=== PATIENT | male | born 1960 | race Hispanic/Latino ===

== ENCOUNTER 2019-01-19 00:30 | Inpatient (IN) | payer SELFPAY ==
[2019-01-19] VITALS (8 sets, daily range): BP systolic 92–144; BP diastolic 55–90
[~2019-01-19] VITALS: Ht 154.2 cm; Wt 83.5 kg
[2019-01-19] MEDS ORDERED: NITROGLYCERIN 2% OINT 1 GM PKT TOP ONE (00:45)
[2019-01-19] MEDS ORDERED: ASPIRIN 81 MG CHEW TAB PO ONE (00:45)
[2019-01-19 00:46] LABS: BASOPHILS # (AUTO) 0.1 (0.0-0.1); BASOPHILS % 0.7 % (0.0-1.0); EOSINOPHILS # (AUTO) 0.3 (0.0-0.4); EOSINOPHILS % 3.7 % (0.0-6.0); HEMATOCRIT 40.7 % (38.2-49.6); HEMOGLOBIN 14.1 g/dL (14.0-18.0); LYMPHOCYTES # (AUTO) 2.3 (1.0-3.2); LYMPHOCYTES % 25.8 % (18.0-39.1); MEAN CORPUSCULAR HEMOGLOBIN 34.3 pg (28-32); MEAN CORPUSCULAR HGB CONC 34.6 g/dL (31-35); MONOCYTES # (AUTO) 0.9 (0.2-0.8); MONOCYTES % 9.7 % (4.4-11.3); NEUTROPHILS # (AUTO) 5.3 (2.1-6.9); NEUTROPHILS % 59.9 % (38.7-80.0); PLATELET COUNT 264 x10e3/uL (140-360); RED BLOOD COUNT 4.11 x10e6/uL (4.3-5.7); RED CELL DISTRIBUTION WIDTH 11.9 % (11.7-14.4)
--- NOTE | 2019-01-19 00:46 | NUR ---
pt reports has not taken any of his medications for several months. awake alert skin w/d resp nonlab. nad noted.
[2019-01-19] MEDS ORDERED: NITROGLYCERIN 2% OINT 1 GM PKT ONE (00:47)
[2019-01-19 00:57] LABS: INR 0.88; PARTIAL THROMBOPLASTIN TIME 29.7 seconds (23.8-35.5); PROTHROMBIN TIME 12.4 seconds (11.9-14.5)
[2019-01-19 01:06] LABS: ALANINE AMINOTRANSFERASE 34 IU/L (0-55); ALBUMIN 3.7 g/dL (3.5-5.0); ALBUMIN/GLOBULIN RATIO 1.3 (0.8-2.0); ALKALINE PHOSPHATASE 117 IU/L (40-150); ANION GAP 15.7 mmol/L (8-16); BLOOD UREA NITROGEN 11 mg/dL (7-26); BUN/CREATININE RATIO 12 (6-25); CALCIUM 9.5 mg/dL (8.4-10.2); CARBON DIOXIDE 25 mmol/L (22-29); CHLORIDE 103 mmol/L (98-107); CREATINE KINASE 111 IU/L (30-200); CREATININE, SERUM 0.89 mg/dL (0.72-1.25); EST GLOMERULAR FILTRATION RATE > 60 ML/MIN (60-); GLUCOSE 112 mg/dL (74-118); POTASSIUM 3.7 mmol/L (3.5-5.1); SODIUM 140 mmol/L (136-145)
--- NOTE | 2019-01-19 01:32 | Diagnostic Imaging Report ---
EXAMINATION: CHEST SINGLE (PORTABLE) INDICATION: Chest pain COMPARISON: None FINDINGS: AP view TUBES and LINES: None. LUNGS: Lungs are well inflated. Lungs are clear. There is no evidence of pneumonia or pulmonary edema. Prominence central pulmonary vasculature with cephalization of vessels. PLEURA: No pleural effusion or pneumothorax. HEART AND MEDIASTINUM: The cardiomediastinal silhouette is unremarkable. BONES AND SOFT TISSUES: No acute osseous lesion. Soft tissues are unremarkable. UPPER ABDOMEN: No free air under the diaphragm. IMPRESSION: Pulmonary vascular congestion. Signed by: Reynaldo Figueroa DO on 01/19/2019 1:29 AM
--- OUTSIDE RECORDS SUMMARY | 2019-01-19 01:38 | XMS REPORT ---
Author [facility] Address Unknown Phone Unavailable Care Team Providers Care Finance Specialist Name Role Phone Dontae LASSITER Unavailable Unavailable Problems This patient has no known problems. Allergies, Adverse Reactions, Alerts This patient has no known allergies or adverse reactions. Medications This patient has no known medications. Results Test Description Test Time Test Comments Text Results Atomic Results Result Comments CHEST SINGLE (PORTABLE) 2019-01-19 01:27:00 [facility] [address] [place], [place] [address] Patient Name: MELBA MUIR MR #: [id number] : 1960 Age/Sex: 58/M Req #: [id number] Adm Physician: Ordered by: BESSY LASSITER MD Report #: [id number] Location: ER Room/Bed: Procedure: [id number] DX/CHEST SINGLE (PORTABLE) Exam Date: 01/19/19 Exam Time: 0100 REPORT STATUS: Signed EXAMINATION: CHEST SINGLE (PORTABLE) INDICATION: Chest pain COMPARISON: None FINDINGS: AP view TUBES and LINES: None. LUNGS: Lungs are well inflated. Lungs are clear. There is no evidence of pneumonia or pulmonary edema. Prominence central pulmonary vasculature with cephalization of vessels. PLEURA: No pleural effusion or pneumothorax. HEART AND MEDIASTINUM: The cardiomedias tinal silhouette is unremarkable. BONES AND SOFT TISSUES: No acute osseous lesion. Soft tissues are unremarkable. UPPER ABDOMEN: No free air under the diaphragm. IMPRESSION: Pulmonary vascular congestion. Signed by: Reynaldo Figueroa DO on 01/19/2019 1:29 AM Dictated By: REYNALDO FIGUEROA DO 8 Transcribed By: BOB on 01/19/19128 COPY TO: BESSY LASSITER MD
[2019-01-19] MEDS ORDERED: SODIUM CHLORIDE FLUSH 10 ML SYR INJ PRN (01:45)
[2019-01-19] MEDS ORDERED: FAMOTIDINE 20 MG/2 ML VIAL IV SCH ×2 (01:45→09:00)
[2019-01-19] MEDS ORDERED: DEXTROSE 50% SYRINGE 50 ML IV PRN (01:45)
[2019-01-19] MEDS ORDERED: ONDANSETRON HCL INJ 2MG/ML 2ML 2 MG/ML VIAL IV PRN (01:45)
[2019-01-19] MEDS ORDERED: NITROGLYCERIN 2% OINT 1 GM PKT TOP SCH (06:00)
[2019-01-19] MEDS: INSULIN REGULAR, HUMAN 100 UNIT/1 ML 3ML VIAL SQ SCH ×4 (07:30→20:59)
[2019-01-19] MEDS: ASPIRIN 81 MG ENTERIC COATED PO SCH (08:11)
[2019-01-19] MEDS ORDERED: CLOPIDOGREL BISULFATE 75 MG TAB PO NR (09:45)
[2019-01-19] MEDS ORDERED: FUROSEMIDE 40 MG TAB PO NR (10:00)
[2019-01-19] MEDS ORDERED: POTASSIUM CHLORIDE 10MEQ EA PO NR (10:00)
[2019-01-19] MEDS: CLOPIDOGREL BISULFATE 75 MG TAB PO SCH (10:07)
[2019-01-19] MEDS: POTASSIUM CHLORIDE 10MEQ EA PO SCH (10:07)
[2019-01-19] MEDS: FUROSEMIDE 40 MG TAB PO SCH (10:07)
[2019-01-19 10:49] LABS: CREATINE KINASE MB 10.8 ng/mL (0-4.3)
[2019-01-19 16:26] LABS: CREATINE KINASE MB 23.6 ng/mL (0-5.0)
--- NOTE | 2019-01-19 16:42 | NUR ---
WALI GAVE SELF PAY PACKET FOR PT TO FOLLOW UP IN [facility].
--- NOTE | 2019-01-19 16:47 | NUR ---
MESSAGE LEFT TO MD TAY REGARDING ELEVATED CARDIAC ENZYME OF 3.7 AWAITING FOR CALL BACK
--- NOTE | 2019-01-19 17:33 | NUR ---
SPOKE WITH MD TAY REGARDING CARDIAC ENZYMES. NEW ORDERS FOR IV HEP GIVEN
[2019-01-19] MEDS ORDERED: HEPARIN SOD (PORCINE) 5,000 UNIT/ML VIAL IV NR (18:00)
--- NOTE | 2019-01-19 18:25 | NUR ---
WAITING FOR HERB DOCTOR TO DRAW PROTOCOL LAB WORK NEEDED PRIOR TO STARTING DRIP
[2019-01-19 18:48] LABS: BASOPHILS # (AUTO) 0.1 (0.0-0.1); BASOPHILS % 0.7 % (0.0-1.0); EOSINOPHILS # (AUTO) 0.3 (0.0-0.4); EOSINOPHILS % 4.1 % (0.0-6.0); HEMATOCRIT 44.2 % (38.2-49.6); LYMPHOCYTES % 26.6 % (18.0-39.1); MEAN CORPUSCULAR HEMOGLOBIN 33.6 pg (28-32); MEAN CORPUSCULAR HGB CONC 33.9 g/dL (31-35); MEAN CORPUSCULAR VOLUME 98.9 fL (81-99); MONOCYTES # (AUTO) 0.8 (0.2-0.8); MONOCYTES % 10.2 % (4.4-11.3); NEUTROPHILS # (AUTO) 4.3 (2.1-6.9); NEUTROPHILS % 58.1 % (38.7-80.0); PLATELET COUNT 264 x10e3/uL (140-360); RED BLOOD COUNT 4.47 x10e6/uL (4.3-5.7); RED CELL DISTRIBUTION WIDTH 11.9 % (11.7-14.4)
[2019-01-19 19:00] LABS: INR 0.85; PROTHROMBIN TIME 12.1 seconds (11.9-14.5)
[2019-01-19 19:01] LABS: PARTIAL THROMBOPLASTIN TIME 28.1 seconds (23.8-35.5)
[2019-01-19] MEDS: HEPARIN 25,000 UNIT 800 UNIT in DEXTROSE 5% 250ML 250 ML IV SCH (19:02)
--- NOTE | 2019-01-19 19:02 | NUR ---
hep drip initiated.
[2019-01-19] MEDS: METOPROLOL TARTRATE 25 MG TAB PO SCH (21:14)
[2019-01-19] MEDS: LISINOPRIL 2.5 MG TAB PO SCH (21:14)
--- NOTE | 2019-01-19 22:58 | Consultation ---
DATE OF CONSULTATION: 01/19/2019 Cardiology Consult Note REASON FOR CONSULT: Non-ST elevation miocardial infarction. CHIEF COMPLAINT: Chest pain. HISTORY OF PRESENT ILLNESS: The patient is a 58-year-old man with history of hypertension, hyperlipidemia, coronary artery disease status post 3 stents in the past, who presents with typical chest pain, he started feeling since yesterday. Troponins elevated to 3, now downtrending. Chest pain has resolved. The patient is on heparin drip. Does not complain about heart failure symptoms. REVIEW OF SYSTEMS: As per HPI, otherwise negative. PAST MEDICAL HISTORY: 1. Hypertension. 2. Hyperlipidemia. 3. Coronary artery disease. SOCIAL HISTORY: The patient does not smoke, drink, or abuse drugs. FAMILY HISTORY: Noncontributory. OUTPATIENT MEDICATIONS: Reviewed. ALLERGIES: NO KNOWN DRUG ALLERGIES. OBJECTIVE: VITAL SIGNS: Temperature afebrile, pulse 80, respiratory rate 16, blood pressure 128/76, saturating 97% on room air. GENERAL: Middle-aged man, in no acute distress. CARDIOVASCULAR: Regular rate and rhythm. No murmurs, rubs, or gallops. LUNGS: Clear to auscultation bilaterally. ABDOMEN: Soft, nontender, nondistended. NEURO AND PSYCH: Alert and oriented to person, place, and time. Normal affect. INPATIENT MEDICATIONS: Reviewed. LABORATORY DATA: Reviewed. Notable for troponin elevation of 3.7 with CK-MB of 23.6. IMAGING DATA: Reviewed. Chest x-ray shows some mild pulmonary vascular congestion. ASSESSMENT AND PLAN: 1. Non-ST elevation myocardial infarction. 2. Pulmonary vascular congestion. PLAN: Continue aspirin, Plavix, high-intensity statin. Echo results are pending. Continue oral furosemide. Plan for coronary angiography on Monday. Continue IV heparin. Thank you for this consult. We will continue to follow. MD TEODORO Ledezma/BRITTANI /[id number]
[2019-01-19] MEDS ORDERED: ACETAMINOPHEN 325 MG TAB PO PRN (23:15)
[2019-01-20] VITALS (7 sets, daily range): BP systolic 103–130; BP diastolic 55–77
--- NOTE | 2019-01-20 03:29 | NUR ---
Patient's PTT lab drawn STAT at 01/20/19 at 0115. Did not receive results until 0320 after notifying lab. New PTT is 38.8 and heparin adjusted from 8000 units/hr to 34675 units/hr. Next lab draw ordered entered for 0715 this morning.
[2019-01-20 07:08] LABS: CHOL/HDL RATIO 4.6 (3.9-4.7)
[2019-01-20] MEDS: INSULIN REGULAR, HUMAN 100 UNIT/1 ML 3ML VIAL SQ SCH ×4 (07:30→21:00)
[2019-01-20] MEDS: FUROSEMIDE 40 MG TAB PO SCH (08:14)
[2019-01-20] MEDS: POTASSIUM CHLORIDE 10MEQ EA PO SCH (08:14)
[2019-01-20] MEDS: ASPIRIN 81 MG ENTERIC COATED PO SCH (08:14)
--- NOTE | 2019-01-20 08:27 | NUR ---
PTT AT 0730IS BACK AT 44.9 . INCREASED RATE TO 11CC/HR AT THIS TIME
[2019-01-20] MEDS: ISOSORBIDE MONONITRATE 30 MG TAB CR PO SCH (08:29)
[2019-01-20] MEDS ORDERED: BISACODYL 10 MG SUPP PR PRN (09:15)
[2019-01-20] MEDS ORDERED: MAGNESIUM HYDROXIDE 30 ML UDC PO ONE (09:15)
[2019-01-20] MEDS: SENNOSIDES 8.6 MG TAB PO SCH ×2 (09:40→17:04)
--- NOTE | 2019-01-20 14:17 | NUR ---
PTT IS 53. AT THERAPEUTIC LEVEL. WILL RECHECK IN 6 HOURS
[2019-01-20] MEDS: HEPARIN 25,000 UNIT 800 UNIT in DEXTROSE 5% 250ML 250 ML IV SCH (17:04)
--- NOTE | 2019-01-20 20:00 | NUR ---
INITIAL ASSESSMENT COMPLETE, PT HAS HEPARIN DRIP GOING AT 11CC/HR, TELE BOX ON PT, PT HAS SIGNED CONSENT FOR SURGERY TOMORROW, NO OTHER NEEDS, CALL LIGHT IN REACH
[2019-01-20] MEDS: ATORVASTATIN 20 MG TAB PO SCH (20:53)
[2019-01-20] MEDS: METOPROLOL TARTRATE 25 MG TAB PO SCH (20:54)
[2019-01-20] MEDS: LISINOPRIL 2.5 MG TAB PO SCH (20:55)
[2019-01-20] MEDS: MAGNESIUM HYDROXIDE 30 ML UDC PO PRN (20:58)
[2019-01-21] VITALS (12 sets, daily range): BP systolic 94–123; BP diastolic 60–72
[2019-01-21 06:37] LABS: ANION GAP 13.2 mmol/L (8-16); BLOOD UREA NITROGEN 12 mg/dL (7-26); BUN/CREATININE RATIO 14 (6-25); CALCIUM 8.9 mg/dL (8.4-10.2); CARBON DIOXIDE 24 mmol/L (22-29); CHLORIDE 105 mmol/L (98-107); CREATININE, SERUM 0.83 mg/dL (0.72-1.25); EST GLOMERULAR FILTRATION RATE > 60 ML/MIN (60-); GLUCOSE 111 mg/dL (74-118); POTASSIUM 4.2 mmol/L (3.5-5.1); SODIUM 138 mmol/L (136-145)
[2019-01-21 06:49] LABS: CHOL/HDL RATIO 4.3 (3.9-4.7)
[2019-01-21] MEDS: INSULIN REGULAR, HUMAN 100 UNIT/1 ML 3ML VIAL SQ SCH ×4 (07:30→22:00)
[2019-01-21] MEDS: ASPIRIN 81 MG ENTERIC COATED PO SCH (08:44)
[2019-01-21] MEDS: CLOPIDOGREL BISULFATE 75 MG TAB PO SCH (08:45)
[2019-01-21] MEDS: POTASSIUM CHLORIDE 10MEQ EA PO SCH (08:45)
[2019-01-21] MEDS ORDERED: ONDANSETRON HCL 4 MG ORAL DISINTEGRATING TAB PO PRN (08:45)
[2019-01-21] MEDS: SENNOSIDES 8.6 MG TAB PO SCH ×2 (08:45→21:59)
[2019-01-21] MEDS: FUROSEMIDE 40 MG TAB PO SCH (08:45)
[2019-01-21] MEDS: ISOSORBIDE MONONITRATE 30 MG TAB CR PO SCH (08:45)
--- NOTE | 2019-01-21 08:57 | NUR ---
CONSENT COMPLETED, MD VILLATORO INTO SEE PT, DISCUSSED POC
--- NOTE | 2019-01-21 09:34 | NUR ---
Nutrition Screen Note RD Recommendation for Physician: -ADAT to cardiac per MD. Plan of Care: RD following, monitoring for tolerance and adequacy. Education provided. Nutrition reason for involvement: MST-2 Primary Diagnose(s): Chest Pain PMH: hypertension, hyperlipidemia, coronary artery disease status post 3 stents in the past, Ht:60.7 in Wt:184 lb BMI: 35.1 kg/m2 IBW:[address] Assessment: 01/21: 58 YOM admitted for chest pain with PMH listed above. Pt was seen resting in his bed, pt is currently NPO for pending coronary angiogram today. Per MD note-echo results are still pending. Pt reported that his appetite is good, he reported he was currently hungry and denied any weight loss. Pt reported some constipation, no N/V, denied chewing or swallowing issues as well as any food allergies. Pt was educated on the low Na diet and given educational handout. Pt had no other questions or concerns. Chart reviewed. [id number]. Labs and meds reviewed. Will continue to monitor. Current Diet: NPO Malnutrition Evaluation (01/21) The patient does not meet criteria for a specified degree of malnutrition at this time. Will re-evaluate at follow-up as appropriate. Diet Education Needs Assessment: Diet education indicated, pt accepted. Learner(s): pt Barriers: none Cultural/Language Modifications: none Readiness: acceptance Method: discussion, handout, teach back Topics: Low Na Diet Understanding/Compliance: verbalized understanding, anticipate fair compliance Nutrition Care Level: low Signed: Kusum Mejia RD, LD
--- NOTE | 2019-01-21 11:45 | NUR ---
SITTING ON BS COUCH, VOICES NO NEEDS AT THIS TIME, CALL LIGHT WITHIN REACH
[2019-01-21] MEDS ORDERED: HEPARIN SOD/SOD CHLORIDE 2,000 ML ONE (12:50)
[2019-01-21] MEDS ORDERED: IOPAMIDOL 370 MG/ML 200 ML INFUS..BTL INJ ONE ×2 (12:50→14:19)
[2019-01-21] MEDS ORDERED: LIDOCAINE HCL 2% LOCAL 20 ML VIAL ONE (12:50)
[2019-01-21] MEDS ORDERED: VERAPAMIL HCL 2.5 MG/ML 2 ML VIAL ONE (13:06)
[2019-01-21] MEDS ORDERED: MIDAZOLAM HCL 2 MG/2 ML VIAL ONE ×3 (13:06→14:51)
[2019-01-21] MEDS ORDERED: FENTANYL CITRATE/PF 100MCG/2 ML INJ ONE ×2 (13:07→14:31)
[2019-01-21] MEDS ORDERED: SODIUM CHLORIDE 0.9% 1000ML 1,000 ML ONE (13:07)
--- NOTE | 2019-01-21 13:10 | NUR ---
HEPARIN DRIP TURNED OFF PER MD ORDER FOR PT TO TRANSFER TO COATING AND BAKING OPERATOR FOR HEART CATH, COATING AND BAKING OPERATOR HERE TO ANESTHESIOLOGY PHYSICIAN PT AT THIS TIME, TELEMETRY AWARE, PT FAMILY AT SIDE
[2019-01-21] MEDS ORDERED: CLOPIDOGREL BISULFATE 75 MG TAB ONE (14:55)
[2019-01-21] MEDS ORDERED: ASPIRIN 325 MG TAB ONE (14:55)
--- NOTE | 2019-01-21 15:10 | NUR ---
Report received from Shawanda Franklin RN, review of procedural findings and medications given. Patient drowsy, easily aroused. maintains airway and room air saturations of 98-99%. No gross issues of pressure, pain, pallor or dysrhythmia. IV site patent with NS 0.9% at KVO by dial-flow to left forearm. patient hemodynamically stable with hemostasis right radial TR band w/ 12 ml to bladder, dressing CDI w/o s/s of bleeding. [facility]o [facility]. transported to CCL 9, no family or friends at this time per pt. - cgf procedure: Dx Coronary angiography w/ Stent to proximal and distal RCA Sheath puller: Punkaylie EDGE BONDER TR band to right wrist 12ml/hr Meds Given Intra-Procedure Sedatives Versed - 5 mg Fentanyl - 175 mcg Radial Cocktail IA by Heparin 3000 units Verapamil 2.5mg Nitro 200mcg Anticoagulants Heparin - 7000 Units Fluids Input - 300 Output - dtv Contrast Isovue 370 - 115 Other Meds Plavix 600 mg Aspirin 325mg
[2019-01-21] MEDS: HEPARIN 25,000 UNIT 800 UNIT in DEXTROSE 5% 250ML 250 ML IV SCH (17:30)
--- NOTE | 2019-01-21 17:40 | NUR ---
Staff unavailable for report. pt continues to be in CCL w/p duress or need.
--- NOTE | 2019-01-21 17:59 | NUR ---
phone report provided to Elena Toribio RN. pt Alert oriented and appropriate, PERRLA, respirations even and unlabored to room air. Pulses x4 extremities equal and strong. Cap fill brisk < 3 sec. TR band successfully removed from Right radial. + neurovascular function, no gross issues or need. Skin warm and dry integrity appears intact. IV 20g to right AC area presents healthy w/o s/s of infiltration or complaint. Abdomen soft and supple. pt offered toileting, denies need to urinate or defecate. No personal affects with patient. Family / friend not available. Pt verbalizes understanding of POC. pt on telemetry pack. . Currently w/o complaint of pain or need. Post TR band removal education provided, verbalizes understanding. tolerating PO w/o duress. -cgf
--- NOTE | 2019-01-21 18:16 | NUR ---
BACK IN ROOM VIA BED FROM CERTIFIED MORTICIAN, AA&OX3, RA, R WRIST DRESSING CDI, PT EDUCATED TO NOT USE R UE PER CERTIFIED MORTICIAN, PT VS WNL, WITH STANDBY ASSIST, PT OOB, AMBULATED TO BR, CALL STRING WITHIN REACH Addendum: 01/21/19 at 1820 by Elena Castillo RN 97.4, 118/63, 98% RA, 71 BPM, 20RR AT THIS TIME
--- NOTE | 2019-01-21 18:34 | NUR ---
PT BLOOD GLUCOSE 105, DINNER TRAY SET UP FOR PT, DENIES PAIN AT THIS TIME
--- NOTE | 2019-01-21 19:00 | NUR ---
RECEIVED PATIENT IN BEDSIDE SHIFT REPORT. PATIENT VISITING WITH FAMILY MEMBERS AT THIS TIME. NO PAIN REPORTED. NO S&S OF DISTRESS NOTED. BED LOCKED IN LOWEST POSITION, SIDE RAILS UPX2, CALL LIGHT IN REACH.
--- NOTE | 2019-01-21 20:02 | NUR ---
SPOKE WITH MD BARRAZA, COVERING FOR MD Jean Pierre TAY, TO CONFIRM ORDERS TO D/C HEPARIN. OKAY TO D/C.
[2019-01-21] MEDS: ATORVASTATIN 20 MG TAB PO SCH (21:59)
[2019-01-21] MEDS: MAGNESIUM HYDROXIDE 30 ML UDC PO PRN (21:59)
[2019-01-21] MEDS: LISINOPRIL 2.5 MG TAB PO SCH (21:59)
[2019-01-21] MEDS: METOPROLOL TARTRATE 25 MG TAB PO SCH (21:59)
[2019-01-22] VITALS: BP_SYST 117; BP_SYST 125; BP_DIAS 64; BP_DIAS 72
--- NOTE | 2019-01-22 00:09 | Progress Note ---
DATE: 01/21/2019 Cardiology Progress Note BODY AFTER ALLERGIES: OBJECTIVE: VITAL SIGNS: Temperature 97 degrees, pulse 73, respiratory rate 20, blood pressure 123/70, and oxygen 98%. GENERAL: Awake and alert, in no acute distress. LUNGS: Clear to auscultation bilaterally. No wheezes or crackles. CARDIOVASCULAR: Normal rate. Regular rhythm. No murmur. Normal S1 and S2. ABDOMEN: Soft and nontender. EXTREMITIES: No edema. CARDIAC MEDICATIONS: mg p.o. daily, metoprolol tartrate 12.5 mg p.o. at bedtime, atorvastatin 40 mg p.o. at bedtime, furosemide 40 mg p.o. daily, Plavix 75 mg p.o. daily, isosorbide mononitrate 15 mg p.o. daily, and aspirin 81 mg p.o. daily. LABORATORY DATA: Sodium 138, potassium 4.2, chloride 105, CO2 of 24, BUN 12, and creatinine 0.83. IMPRESSION: 1. Mrc-PC-Logzmhpzs myocardial infarction. 2. Pulmonary vascular congestion. 3. Hypertension. 4. Hyperlipidemia. 5. Coronary artery disease with prior stents. RECOMMENDATIONS: Continue current cardiac medications. The patient is status post coronary angiography by Dr. Win Corona today with revascularization of the RCA. Continue dual anti-platelet therapy. Blood pressure is controlled. Continue diuresis. Thank you for this consult. We will continue to follow. Courtney Maria MD ABS/MODL /[id number]
[2019-01-22 04:00] VITALS: BP 111/59
[2019-01-22 05:56] LABS: BASOPHILS # (AUTO) 0.1 (0.0-0.1); BASOPHILS % 0.7 % (0.0-1.0); EOSINOPHILS # (AUTO) 0.3 (0.0-0.4); EOSINOPHILS % 3.5 % (0.0-6.0); HEMATOCRIT 41.8 % (38.2-49.6); HEMOGLOBIN 13.9 g/dL (14.0-18.0); LYMPHOCYTES # (AUTO) 1.8 (1.0-3.2); LYMPHOCYTES % 21.4 % (18.0-39.1); MEAN CORPUSCULAR HEMOGLOBIN 33.9 pg (28-32); MEAN CORPUSCULAR HGB CONC 33.3 g/dL (31-35); MONOCYTES # (AUTO) 0.6 (0.2-0.8); MONOCYTES % 7.5 % (4.4-11.3); NEUTROPHILS # (AUTO) 5.5 (2.1-6.9); NEUTROPHILS % 66.7 % (38.7-80.0); PLATELET COUNT 276 x10e3/uL (140-360); RED CELL DISTRIBUTION WIDTH 11.7 % (11.7-14.4)
[2019-01-22 06:08] LABS: ANION GAP 14.1 mmol/L (8-16); BLOOD UREA NITROGEN 17 mg/dL (7-26); BUN/CREATININE RATIO 18 (6-25); CALCIUM 8.7 mg/dL (8.4-10.2); CARBON DIOXIDE 21 mmol/L (22-29); CHLORIDE 106 mmol/L (98-107); CREATININE, SERUM 0.94 mg/dL (0.72-1.25); EST GLOMERULAR FILTRATION RATE > 60 ML/MIN (60-); GLUCOSE 139 mg/dL (74-118); POTASSIUM 4.1 mmol/L (3.5-5.1); SODIUM 137 mmol/L (136-145)
--- NOTE | 2019-01-22 07:12 | NUR ---
pt alert resp even and unlabored at this time, no distress noted, pt able to make needs known, call light in reach.
[2019-01-22] MEDS: INSULIN REGULAR, HUMAN 100 UNIT/1 ML 3ML VIAL SQ SCH ×2 (07:30→11:30)
[2019-01-22 08:53] VITALS: BP 114/71
[2019-01-22] MEDS: CLOPIDOGREL BISULFATE 75 MG TAB PO SCH (09:00)
[2019-01-22] MEDS: POTASSIUM CHLORIDE 10MEQ EA PO SCH (09:00)
[2019-01-22] MEDS: SENNOSIDES 8.6 MG TAB PO SCH (09:00)
[2019-01-22] MEDS: ASPIRIN 81 MG ENTERIC COATED PO SCH (09:00)
[2019-01-22] MEDS: FUROSEMIDE 40 MG TAB PO SCH (09:00)
[2019-01-22] MEDS: ISOSORBIDE MONONITRATE 30 MG TAB CR PO SCH (09:00)
--- NOTE | 2019-01-22 09:13 | NUR ---
PRAMOD CALLED TO PT'S ROOM PT REQUESTING HELP WITH FILLING OUT TESSY APPLICATION CM CALLED JOSÉ OG , AND LEFT VOICE MAIL TO F/U WITH PT ON HIS CELL AT [phone]
[2019-01-22 09:45] VITALS: BP 114/71
--- NOTE | 2019-01-23 01:58 | Progress Note ---
DATE: 01/22/2019 Cardiology Progress Note SUBJECTIVE: The patient denies chest pain or shortness of breath. OBJECTIVE: VITAL SIGNS: Temperature 97 degrees, pulse 78, respiratory rate 20, blood pressure 114/71, and oxygen saturation 98% on room air. GENERAL: Awake, alert, in no acute distress. LUNGS: Clear to auscultation bilaterally. No wheezes or crackles. CARDIOVASCULAR: Normal rate, regular rhythm. No murmur. Normal S1, S2. ABDOMEN: Soft and nontender. EXTREMITIES: No edema. CARDIAC MEDICATIONS: Plavix 75 mg p.o. daily, isosorbide mononitrate 15 mg p.o. daily, aspirin 81 mg p.o. daily, atorvastatin 40 mg p.o. at bedtime, metoprolol tartrate 12.5 mg p.o. at bedtime, lisinopril 2.5 mg p.o. at bedtime, and Lasix 40 mg p.o. daily. LABORATORY DATA: WBC 8.24, hemoglobin 13.9, hematocrit 41.8, and platelets 276. Sodium 137, potassium 4.1, chloride 106, CO2 of 21, BUN 17, and creatinine 0.94. TELEMETRY: Normal sinus rhythm. IMPRESSION: 1. Dkq-UH-xiznlskdv myocardial infarction. 2. Pulmonary vascular congestion. 3. Hypertension. 4. Hyperlipidemia. 5. Coronary artery disease with prior stents. RECOMMENDATIONS: Continue current cardiac medications including dual antiplatelet therapy. The patient's blood pressure is controlled. Continue high-intensity statin. Recommend discharge on metoprolol succinate instead of metoprolol tartrate given his systolic heart failure. Continue current cardiac medications, otherwise. Thank you for this consult. We will continue to follow. Courtney Maria MD ABS/MODL /[id number]
--- NOTE | 2019-01-23 06:34 | Discharge Summary ---
COMMODITY BROKER: Dr. Win Corona. FINAL DIAGNOSES: 1. Wuy-EX-squcewcyf myocardial infarction secondary to noncompliance to medication treatment for his coronary artery disease with multiple stents in the past. 2. Status post cardiac catheterization with intervention to the RCA. SUMMARY: The patient is a 58-year-old male with chest pain and fva-IC-bqloddlbv myocardial infarction. The patient has stopped all his medications approximately 5 to 6 months ago. He is now at [facility]. The patient had a gold card. The patient had an appointment coming up. He came in with chest pain with elevated troponin I, status post cardiac catheterization on January 21, 2019, with stenting to the RCA. The patient will go home with Ecotrin 81 mg daily, Lipitor 40 mg at bedtime, Plavix 75 mg daily, Lasix 40 mg daily, Imdur 30 mg daily, lisinopril 2.5 mg daily, Lopressor 12.5 mg at bedtime, and potassium 10 mEq daily. I expressed strongly for the patient to be compliant to his medication to prevent further complication of his coronary artery disease. The patient expressed understanding and he will follow up with the [facility] since he does have a gold card to get his medication now. MD NACHO Ybarra/BRITTANI /[id number]
== END 2019-01-22 12:19 | disposition home or self-care (01) | DRG 247 ==
LOC: ER 00:30 → ERHOLD 01:34 → MED/SURG 03:41 → OBSVTOIN 23:02
PROVIDERS: ADMIT Internal Medicine; ATTEND Internal Medicine
PROC: 027034Z Dilation of Coronary Artery, One Artery with Drug-eluting Intraluminal Device, Percutaneous Approach (ICD-10-PCS; principal; 2019-01-21)
PROC: 02703ZZ Dilation of Coronary Artery, One Artery, Percutaneous Approach (ICD-10-PCS; 2019-01-21)
PROC: 4A023N7 Measurement of Cardiac Sampling and Pressure, Left Heart, Percutaneous Approach (ICD-10-PCS; 2019-01-21)
DX: I21.4 Non-ST elevation (NSTEMI) myocardial infarction (principal); Z91.14 Patient's other noncompliance with medication regimen; I25.10 Atherosclerotic heart disease of native coronary artery without angina pectoris; Z95.5 Presence of coronary angioplasty implant and graft; I10 Essential (primary) hypertension; E78.5 Hyperlipidemia, unspecified
CPT/HCPCS: 36415; 71045; 80048; 80053; 80061; 82550; 82553; 82948; 84484; 85025; 85610; 85730; 92920; 92921; 92928; 93005; 93306; 93458; 99284; C1725; C1769; C1874; C1887; J1644; J1817; J2001; J2250; J3010; J7030; Q9967